=== PATIENT | female | born 1935 | race Hispanic/Latino ===

== ENCOUNTER 2021-01-07 12:11 | Emergency (ER) | payer OTHER ==
[~2021-01-07] VITALS: Ht 160 cm; Wt 71.2 kg
[2021-01-07 12:43] LABS: BASOPHILS % 0.6 % (0.0-1.0); EOSINOPHILS # (AUTO) 0.1 (0.0-0.4); EOSINOPHILS % 1.4 % (0.0-6.0); HEMATOCRIT 41.3 % (34.2-44.1); HEMOGLOBIN 13.6 g/dL (12.0-16.0); LYMPHOCYTES # (AUTO) 1.6 (1.0-3.2); LYMPHOCYTES % 32.1 % (18.0-39.1); MEAN CORPUSCULAR HEMOGLOBIN 31.9 pg (28-32); MEAN CORPUSCULAR HGB CONC 32.9 g/dL (31-35); MEAN CORPUSCULAR VOLUME 96.9 fL (81-99); MONOCYTES # (AUTO) 0.6 (0.2-0.8); MONOCYTES % 12.6 % (4.4-11.3); NEUTROPHILS # (AUTO) 2.6 (2.1-6.9); NEUTROPHILS % 52.9 % (38.7-80.0); PLATELET COUNT 201 x10e3/uL (140-360); RED BLOOD COUNT 4.26 x10e6/uL (3.6-5.1); RED CELL DISTRIBUTION WIDTH 12.6 % (11.7-14.4)
[2021-01-07 13:02] LABS: INR 0.85; PROTHROMBIN TIME 12.2 seconds (11.9-14.5)
[2021-01-07 13:12] LABS: ALBUMIN 4.3 g/dL (3.5-5.0); ALBUMIN/GLOBULIN RATIO 1.2 (0.8-2.0); ANION GAP 16.2 mmol/L (8-16); CALCIUM 9.8 mg/dL (8.4-10.2); CREATININE, SERUM 1.18 mg/dL (0.57-1.11); POTASSIUM 4.2 mmol/L (3.5-5.1)
[2021-01-07] MEDS ORDERED: ASPIRIN 325 MG TAB PO ONE (13:30)
[2021-01-07] MEDS ORDERED: ASPIRIN 325 MG TAB ONE (13:36)
[2021-01-07 18:23] VITALS: BP 145/70
== END 2021-01-07 18:37 | disposition home or self-care (01) ==
LOC: ER 12:13
DX: R29.810 Facial weakness (principal); G50.0 Trigeminal neuralgia; I10 Essential (primary) hypertension; E78.5 Hyperlipidemia, unspecified; R94.31 Abnormal electrocardiogram [ECG] [EKG]; Z20.822 Contact with and (suspected) exposure to COVID-19
CPT/HCPCS: 36415; 70450; 70551; 80053; 84484; 85025; 85610; 93005; 99284; U0002